=== PATIENT | female | born 1975 | race Caucasian/White ===

== ENCOUNTER → 2023-04-23 | Emergency (ER) | payer OTHER ==
[~2023-04-23] VITALS: Ht 167 cm; Wt 75.0 kg
[2023-04-23 12:32] VITALS: BP 154/96
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
== END ==
LOC: ER 11:29
DX: S06.0X9A Concussion with loss of consciousness of unspecified duration, initial encounter (principal); S02.122A Fracture of orbital roof, left side, initial encounter for closed fracture; S02.0XXA Fracture of vault of skull, initial encounter for closed fracture; S02.2XXA Fracture of nasal bones, initial encounter for closed fracture; S90.812A Abrasion, left foot, initial encounter; S90.811A Abrasion, right foot, initial encounter; M25.522 Pain in left elbow; V89.2XXA Person injured in unspecified motor-vehicle accident, traffic, initial encounter; Y92.410 Unspecified street and highway as the place of occurrence of the external cause
CPT/HCPCS: 70450; 70486; 72125; 99282